=== PATIENT | female | born 1960 | race Caucasian/White ===

== ENCOUNTER → 2017-08-05 | Outpatient (CLI) | payer OTHER, BC ==
[~2017-08-05] MED LIST: EST.625T PO
--- NOTE | 2017-08-05 12:09 | Diagnostic Imaging Report ---
Bilateral screening mammogram 2D views with tomosynthesis The current study was also evaluated with a Computer Aided Detection (CAD) system. INDICATION: Screening. No current complaints stated on the questionnaire. COMPARISON: 08/05/2016. FINDINGS: The breasts are composed of heterogeneously dense parenchyma which may decrease mammographic sensitivity. Scattered punctate calcifications are seen. Allowing for technique and positional differences, no suspicious change is seen. IMPRESSION: No significant change. ACR BI-RADS Category 2: Benign findings. Result letter will be mailed to the patient. Note: At least 10% of breast cancer is not imaged by mammography. Dictated by: Dictated on workstation # [id number]
== END ==
LOC: RAD 07:38
PROVIDERS: ATTEND Surgery
DX: Z12.31 Encounter for screening mammogram for malignant neoplasm of breast (principal)

== ENCOUNTER → 2018-08-01 | Outpatient (CLI) | payer OTHER, BC ==
--- NOTE | 2018-08-01 09:07 | Diagnostic Imaging Report ---
Indication: Routine screening. Comparison is made with prior mammogram from 08/05/2017 and 08/05/2016. 2-D and 3-D bilateral screening mammography was performed with CAD. Both breasts are heterogeneously dense, limiting the sensitivity of mammography. The parenchymal pattern is stable. No mass or malignant-appearing microcalcifications are seen. The axillae are unremarkable. Impression: BI-RADS category 1 No mammographic features suspicious for malignancy are identified. ACR BI-RADS Category 1: Negative. Result letter will be mailed to the patient. Note: At least 10% of breast cancer is not imaged by mammography. Dictated by: Dictated on workstation # [id number]
== END ==
LOC: RAD 07:34
PROVIDERS: ATTEND Surgery
DX: Z12.31 Encounter for screening mammogram for malignant neoplasm of breast (principal)
CPT/HCPCS: 77067

== ENCOUNTER → 2019-08-02 | Outpatient (CLI) | payer OTHER, BC ==
--- NOTE | 2019-08-02 09:36 | Diagnostic Imaging Report ---
INDICATION: Routine screening. COMPARISON: 08/01/2018 and 08/05/2017. TECHNIQUE: 2D and 3D bilateral screening mammography was performed with CAD. FINDINGS: Both breasts are heterogeneously dense, limiting the sensitivity of mammography. Benign calcifications are noted bilaterally. No dominant mass or malignant appearing microcalcifications are seen. The axillae are unremarkable. IMPRESSION: No mammographic features suspicious for malignancy are identified. ACR BI-RADS Category 2: Benign findings. Result letter will be mailed to the patient. Note: At least 10% of breast cancer is not imaged by mammography. Dictated by: Dictated on workstation # [id number]
== END ==
LOC: RAD 08:13
PROVIDERS: ATTEND Surgery
DX: Z12.31 Encounter for screening mammogram for malignant neoplasm of breast (principal); Z87.2 Personal history of diseases of the skin and subcutaneous tissue
CPT/HCPCS: 77067

== ENCOUNTER → 2020-08-07 | Outpatient (CLI) | payer BC, OTHER ==
--- NOTE | 2020-08-07 10:25 | Diagnostic Imaging Report ---
Indication: Routine screening. Comparison is made with prior mammogram from 08/02/2019 and 08/01/2018. 2-D and 3-D bilateral screening mammography was performed with CAD. Both breasts are heterogeneously dense, limiting the sensitivity of mammography. The overall parenchymal pattern appears stable. No dominant mass or malignant appearing microcalcifications are seen. There is an asymmetric density in the medial aspect of the right breast which appears to be fairly stable. There are scattered benign calcifications. No new mass or malignant appearing microcalcifications are seen. Axillae are unremarkable. IMPRESSION: BI-RADS Category 2 No mammographic features suspicious for malignancy are identified. ACR BI-RADS Category 2: Benign findings. Result letter will be mailed to the patient. Note: At least 10% of breast cancer is not imaged by mammography. Dictated by: Dictated on workstation # [id number]
== END ==
LOC: RAD 07:20
PROVIDERS: ATTEND Surgery
DX: Z12.31 Encounter for screening mammogram for malignant neoplasm of breast (principal)
CPT/HCPCS: 77063; 77067

== ENCOUNTER → 2021-08-04 | Outpatient (CLI) | payer OTHER, BC ==
--- NOTE | 2021-08-04 09:24 | Diagnostic Imaging Report ---
INDICATION: Routine screening. COMPARISON: 08/07/2020 and 08/02/2019. TECHNIQUE: 2D and 3D bilateral screening mammography was performed with CAD. FINDINGS: Both breasts are heterogeneously dense, limiting the sensitivity of mammography. There is a density in the left breast at posterior depth which appears to be laterally located and appears new since the prior mammograms. Additional views are recommended. The right breast appears stable. There are benign calcifications bilaterally. The axillae are unremarkable. IMPRESSION: Left breast density. Additional views are recommended for further evaluation. ACR BI-RADS Category 0: Incomplete. (Needs additional imaging evaluation). Result letter will be mailed to the patient. Note: At least 10% of breast cancer is not imaged by mammography. Dictated by: Dictated on workstation # [id number]
== END ==
LOC: RAD 07:30
PROVIDERS: ATTEND Obstetrics & Gynecology
DX: Z12.31 Encounter for screening mammogram for malignant neoplasm of breast (principal)
CPT/HCPCS: 77063; 77067

== ENCOUNTER → 2021-08-27 | Outpatient (CLI) | payer OTHER, BC ==
--- NOTE | 2021-08-27 11:16 | Diagnostic Imaging Report ---
INDICATION: Left breast density. Patient presents for further evaluation. COMPARISON: Correlation is made to the screening mammogram from 08/04/2021. TECHNIQUE: Sonographic interrogation of the outer left breast was performed. FINDINGS: There is a large simple appearing cyst at the 4 o'clock location of the left breast 5-6 cm from the nipple measuring 13 mm x 7 mm x 14 mm. This likely accounts for the mammographic density. No other suspicious abnormalities are seen apart from a probable intraparenchymal lymph node at the 12 o'clock location, 3 to 4 cm from the nipple. IMPRESSION: Benign findings as described with a large simple cyst at the 4 o'clock location accounting for the mammographic density. The patient may return to routine annual screening mammography. ACR BI-RADS Category 2: Benign findings. Result letter will be mailed to the patient. Note: At least 10% of breast cancer is not imaged by mammography. Dictated by: Dictated on workstation # [id number]
== END ==
LOC: RAD 10:15
PROVIDERS: ATTEND Surgery
DX: N60.02 Solitary cyst of left breast (principal)
CPT/HCPCS: 76642

== ENCOUNTER → 2022-11-05 | Outpatient (CLI) | payer BC, OTHER ==
--- NOTE | 2022-11-05 13:12 | Diagnostic Imaging Report ---
2-D and 3-D bilateral screening mammography was performed with CAD. COMPARISON: This study was compared to the prior exams of 08/04/2021, 08/07/2020 and 08/02/2019. There are no current complaints. FINDINGS: The fibroglandular tissue in both breasts is heterogeneously dense. This does limit the sensitivity of this exam. Overall, there does not appear to have been any significant change when compared to the prior study. No primary or secondary sign of malignancy is noted. IMPRESSION: There is no radiographic evidence for malignancy. BI-RADS CATEGORY: 1. NEGATIVE. ACR BI-RADS Category 1: Negative. Result letter will be mailed to the patient. Note: At least 10% of breast cancer is not imaged by mammography. Dictated by: Dictated on workstation # [id number]
== END ==
LOC: RAD 06:50
PROVIDERS: ATTEND Nurse Practitioner Family
DX: Z12.31 Encounter for screening mammogram for malignant neoplasm of breast (principal)
CPT/HCPCS: 77063; 77067